=== PATIENT | female | born 1960 | race Caucasian/White ===

== ENCOUNTER 2017-10-24 14:15 | Emergency (ER) | payer OTHER ==
[2017-10-24] MEDS: KETOROLAC 30 MG INJ IM (15:05)
[2017-10-24 15:12] LABS: ADD MAN DIFF? NO
[2017-10-24 15:17] LABS: WHITE BLOOD COUNT 5.1 10^3/ul (4.8-10.8)
[2017-10-24 15:17] LABS: BASOPHILS % 0.2 % (0.0-2.0); HEMATOCRIT 38.5 % (37.0-47.0); HEMOGLOBIN 12.7 g/dl (12.0-16.0); LYMPHOCYTES # 1.9 10^3/ul (0.8-2.9); LYMPHOCYTES % 37.7 % (15.0-51.0); MEAN CORPUSCULAR HEMOGLOBIN 28.5 pg (29.0-33.0); MEAN CORPUSCULAR VOLUME 86.5 fl (82.0-101.0); MEAN PLATELET VOLUME 10.3 fl (7.4-10.4); MONOCYTE # 0.3 10^3/ul (0.3-0.9); MONOCYTES % 6.2 % (0.0-11.0); NEUTROPHIL # 2.9 10^3/ul (1.6-7.5); NEUTROPHILS % 55.7 % (39.0-77.0); PLATELET COUNT 199 10^3/UL (140-415); RED BLOOD COUNT 4.45 10^6/ul (4.20-5.40)
[2017-10-24 15:46] LABS: ANION GAP 15 (8-16); BLOOD UREA NITROGEN 15 mg/dl (7-20); CALCIUM 9.4 mg/dl (8.4-10.2); CARBON DIOXIDE 27 mmol/L (21-31); CHLORIDE 109 mmol/L (97-110); CREATININE 0.66 mg/dl (0.44-1.00); GLUCOSE 139 mg/dl (70-220); POTASSIUM 3.8 mmol/L (3.5-5.1); SODIUM 147 mmol/L (135-144)
[2017-10-24 15:57] LABS: B-TYPE NATRIURETIC PEPTIDE 34 PG/ML (0-125)
[2017-10-24 16:03] LABS: TROPONIN-I < 0.012 ng/ml (0.000-0.120)
== END 2017-10-24 16:29 | disposition home or self-care (01) ==
LOC: FTE 14:15
DX: R07.89 Other chest pain (principal); E03.9 Hypothyroidism, unspecified
CPT/HCPCS: 71045; 80048; 83880; 84484; 85025; 96372; 99285-25

== ENCOUNTER 2018-09-14 11:32 | Day surgery (SDC) | payer OTHER ==
[2018-09-14] MEDS ORDERED: FENTAnyl 50 MCG/ML VIAL (14:38)
[2018-09-14] MEDS ORDERED: MIDAZOLAM 1 MG/ML 2 ML INJ ×2 (14:39)
== END 2018-09-14 15:42 | disposition home or self-care (01) ==
LOC: GIL 11:32
DX: Z12.11 Encounter for screening for malignant neoplasm of colon (principal); K64.8 Other hemorrhoids; K29.60 Other gastritis without bleeding; D12.5 Benign neoplasm of sigmoid colon; D12.3 Benign neoplasm of transverse colon
CPT/HCPCS: 43239; 88305; 88312